=== PATIENT | male | born 1990 | race Caucasian/White ===

== ENCOUNTER 2021-04-18 20:35 | Inpatient (IN) | payer OTHER ==
[~2021-04-18] VITALS: Ht 175.3 cm; Wt 68.0 kg
[~2021-04-18 20:35] MED LIST: BENTYL 20MG TAB20 MG PO; ZOFRAN4 MG PO
[2021-04-18 21:35] LABS: HEMOGLOBIN 17.4 gm/dl (14.0-17.5); RED BLOOD COUNT 5.64 M/UL (4.20-5.50); WHITE BLOOD COUNT 7.2 K/UL (4.5-11.0)
[2021-04-18 21:54] LABS: BUN/CREATININE RATIO 7 (0-10)
[2021-04-19 07:44] LABS: RED BLOOD COUNT 4.87 M/UL (4.20-5.50); WHITE BLOOD COUNT 14.4 K/UL (4.5-11.0)
[2021-04-19 07:45] LABS: HEMOGLOBIN 13.9 gm/dl (14.0-17.5)
[2021-04-19 08:03] LABS: BUN/CREATININE RATIO 10 (0-10)
[2021-04-20 04:32] LABS: HEMOGLOBIN 12.7 gm/dl (14.0-17.5); RED BLOOD COUNT 4.45 M/UL (4.20-5.50); WHITE BLOOD COUNT 16.2 K/UL (4.5-11.0)
[2021-04-20 04:50] LABS: BUN/CREATININE RATIO 16 (0-10)
[2021-04-20 13:10] LABS: HBSAG SCREEN Negative (Negative); HEP A AB, IGM Negative (Negative); HEP B CORE AB, IGM Negative (Negative); HEP C VIRUS AB <0.1 (0.0-0.9)
[2021-04-21 03:12] LABS: HEMOGLOBIN 12.4 gm/dl (14.0-17.5); RED BLOOD COUNT 4.25 M/UL (4.20-5.50); WHITE BLOOD COUNT 15.4 K/UL (4.5-11.0)
[2021-04-21 03:45] LABS: BUN/CREATININE RATIO 18 (0-10)
== END 2021-04-21 08:35 | disposition short-term general hospital (02) | DRG 871 ==
LOC: ER1 20:35 → CDU 04-19 01:08 → MED SURG 4 04-19 01:08
PROVIDERS: Internal Medicine; Physician Assistant; ADMIT Internal Medicine
DX: A41.9 Sepsis, unspecified organism (principal); K65.2 Spontaneous bacterial peritonitis; K63.1 Perforation of intestine (nontraumatic); K50.90 Crohn's disease, unspecified, without complications; K52.9 Noninfective gastroenteritis and colitis, unspecified; Z20.822 Contact with and (suspected) exposure to COVID-19; F17.210 Nicotine dependence, cigarettes, uncomplicated; F12.90 Cannabis use, unspecified, uncomplicated; F10.20 Alcohol dependence, uncomplicated; R10.9 Unspecified abdominal pain; Z83.79 Family history of other diseases of the digestive system; K70.11 Alcoholic hepatitis with ascites
CPT/HCPCS: 36415; 71046; 74019; 80048; 80053; 80074; 80307; 81001; 82150; 83605; 83690; 85025; 85610; 87040; 96374; 96375; 96376; 99285; C9113; G0480; J1885; J2270; J2405; J2543; J7030; Q9967; U0002

== ENCOUNTER → 2021-05-30 | Outpatient (CLI) | payer OTHER ==
[2021-05-30 08:32] LABS: RED BLOOD COUNT 4.95 M/UL (4.20-5.50); WHITE BLOOD COUNT 9.4 K/UL (4.5-11.0)
[2021-05-30 09:16] LABS: BUN/CREATININE RATIO 16 (0-10)
== END ==
LOC: CT 07:45
PROVIDERS: Surgery
DX: G89.18 Other acute postprocedural pain (principal); R10.9 Unspecified abdominal pain; K82.9 Disease of gallbladder, unspecified
CPT/HCPCS: 36415; 80053; 82150; 83690; 85025; Q9967